=== PATIENT | male | born 1985 | race Caucasian/White ===

== ENCOUNTER 2017-05-07 05:29 | Inpatient (IN) | payer SELFPAY ==
[2017-05-07] MEDS ORDERED: HYDROmorphone INJ* 2 MG/ML CARPUJECT SYRINGE IV SLOW PU ONE (06:00)
[2017-05-07] MEDS ORDERED: NS 0.9% 1000 ML* 2,000 ML IV ONE (06:00)
[2017-05-07] MEDS ORDERED: Famotidine IV* 10 MG/ML 2 ML (20 mg) IV ONE (06:00)
[2017-05-07] MEDS ORDERED: Metoclopramide IV* 5 MG/ML 2 ML VIAL IV ONE (06:00)
[2017-05-07] MEDS ORDERED: Insulin REGULAR(*) 1 UNITS UNIT IV PUSH ONE (06:02)
[2017-05-07 06:21] LABS: ABS Basophils 0 10^3/ul (0-0.2); ABS Eosinophils 0 10^3/ul (0-0.6); ABS Lymphocytes 1.3 10^3/ul (1.0-4.8); ABS Monocytes 0.3 10^3/ul (0-0.8); ABS Neutrophils 10.7 10^3/ul (1.5-7.7); ABS Nucleated RBC 0 10^3/ul; Eosinophil % 0.1 % (0-6); Hematocrit 45 % (42-52); Hemoglobin 15.2 g/dl (14.0-18.0); Lymphocyte % 10.3 % (25-47); Mean Corpuscular HGB Conc 34 g/dl (31-36); Mean Corpuscular Hemoglobin 30 pg (27-31); Mean Corpuscular Volume 87 fL (80-94); Mean Platelet Volume 9 um3 (7.4-10.4); Nucleated Red Blood Cells % 0; Platelet Count 292 10^3/ul (150-450); Red Blood Count 5.15 10^6/ul (4.0-5.4); Red Cell Distribution Width 13 % (10.5-15); White Blood Count 12.3 10^3/ul (3.5-10.8)
[2017-05-07 06:32] LABS: EGFR Non-African American 114.4 (>60)
[2017-05-07] MEDS ORDERED: Insulin GLARGINE(*) 1 UNITS UNIT SUBCUT ONE ×2 (06:59→08:15)
[2017-05-07] MEDS ORDERED: Insulin REGULAR(*) 100 UNITS in NS 0.9% 100 ML* 100 ML IVPB SCH (07:00)
[2017-05-07] MEDS ORDERED: D5NS 0.9% 1000 ML BAG* 1,000 ML IV SCH (07:00)
--- NOTE | 2017-05-07 07:03 | ED ---
Melisa Stafford Edward, scribed for Peace Thrasher MD on 05/07/17 at 0543 . Abdominal Pain/Male - HPI Summary HPI Summary: 31 y/o male presents to the ED c/o severe ABD pain for the past 6 hours. Associated sx: vomiting. Symptoms not aggravated or alleviated by anything. Pt states he first vomited immediately after he ate last night. The pain came after the vomiting. PMHx 2 years DM. Pt takes Hemalog and Lantis. Pt states he has not been taking his full DM medications recently because he is uninsured. Pt has had 1 episode of DKA before. - History of Current Complaint Chief Complaint: EDAbdPain Stated Complaint: POSS DKA Time Seen by Provider: 05/07/17 05:42 Hx Obtained From: Patient Onset/Duration: Lasting Hours, Still Present Timing: Constant Pain Intensity: 10 Pain Scale Used: 0-10 Numeric Location: Epigastric Aggravating Factor(s): Nothing Alleviating Factor(s): Nothing Associated Signs And Symptoms: Positive: Vomiting - Allergies/Home Medications Allergies/Adverse Reactions: Allergies Allergy/AdvReac Type Severity Reaction Status Date / Time Amoxicillin Allergy Unknown Verified 10/18/13 23:21 Reaction Details PMH/Surg Hx/FS Hx/Imm Hx Previously Healthy: No Endocrine/Hematology History: Reports: Hx Diabetes Respiratory History: Reports: Hx Asthma, Other Respiratory Problems/Disorders - bronchitis, not chronic Infectious Disease History: No Infectious Disease History: Denies: Traveled Outside the [place] in Last 30 Days - Family History Known Family History: Positive: Other - Mom - CVA 2x in 50's - Social History Alcohol Use: None Hx Substance Use: Yes Substance Use Type: Reports: Excessive Caffeine, Marijuana Hx Tobacco Use: No Smoking Status (MU): Never Smoked Tobacco Review of Systems Constitutional: Negative Eyes: Negative ENT: Negative Cardiovascular: Negative Respiratory: Negative Positive: Abdominal Pain, Vomiting Genitourinary: Negative Musculoskeletal: Negative Skin: Negative Neurological: Negative Psychological: Normal All Other Systems Reviewed And Are Negative: Yes Physical Exam - Summary Physical Exam Summary: VITAL SIGNS: Reviewed. GENERAL: Patient is a well-developed and nourished male who is lying comfortable in the stretcher. Patient is not in any acute respiratory distress. HEAD AND FACE: No signs of trauma. No ecchymosis, hematomas or skull depressions. No sinus tenderness. EYES: PERRLA, EOMI x 2, No injected conjunctiva, no nystagmus. EARS: Hearing grossly intact. Ear canals and tympanic membranes are within normal limits. MOUTH: Oropharynx within normal limits. NECK: Supple, trachea is midline, no adenopathy, no JVD, no carotid bruit, no c- spine tenderness, neck with full ROM. CHEST: Symmetric, no tenderness at palpation LUNGS: Clear to auscultation bilaterally. No wheezing or crackles. CVS: Regular rate and rhythm, S1 and S2 present, no murmurs or gallops appreciated. ABDOMEN: Soft, epigastric tenderness. No signs of distention. No rebound no guarding, and no masses palpated. Bowel sounds are normal. EXTREMITIES: FROM in all major joints, no edema, no cyanosis or clubbing. NEURO: Alert and oriented x 3. No acute neurological deficits. Speech is normal and follows commands. SKIN: Dry and warm Triage Information Reviewed: Yes Vital Signs On Initial Exam: Initial Vitals Temp Pulse Resp BP Pulse Ox 97.9 F 68 30 141/72 100 05/07/17 05:32 05/07/17 05:32 05/07/17 05:32 05/07/17 05:32 05/07/17 05:32 Vital Signs Reviewed: Yes Diagnostics - Vital Signs Vital Signs Temp Pulse Resp BP Pulse Ox 05/07/17 05:32 97.9 F 68 30 141/72 100 - Laboratory Result Diagrams: 05/07/17 06:08 05/07/17 06:08 Lab Statement: Any lab studies that have been ordered have been reviewed, and results considered in the medical decision making process. Re-Evaluation - Re-Evaluation 1 Re-Evaluation Time: 06:54 Comment: Discuss plan to admit Abdominal Pain Fem Course/Dx - Course Assessment/Plan: 31 y/o male presents to the ED c/o severe ABD pain for the past 6 hours. Associated sx: vomiting. Symptoms not aggravated or alleviated by anything. Pt states he first vomited immediately after he ate last night. The pain came after the vomiting. PMHx 2 years DM. Pt takes Hemalog and Lantis. Pt states he has not been taking his full DM medications recently because he is uninsured. Pt has had 1 episode of DKA before. Spoke to Dr. Mendoza (hospitalist) at 06:56, who accepted the pt for admission. - Diagnoses Provider Diagnoses: Hyperglycemia - Provider Notifications Discussed Care Of Patient With: Dee Dee Mendoza Time Discussed With Above Provider: 06:56 Instructed by Provider To: Admit As Inpatient Discharge - Discharge Plan Condition: Stable Disposition: ADMITTED TO [facility] Referrals: Kanu Saab MD [Primary Care Provider] - The documentation as recorded by the Melisa sevilla Edward accurately reflects the service I personally performed and the decisions made by , Peace Thrasher MD.
[2017-05-07] MEDS ORDERED: NS 0.9% 1000 ML* 1,000 ML IV ONE (07:34)
[2017-05-07] MEDS ORDERED: NS 0.9% 1000 ML* 1,000 ML IV SCH (07:45)
--- NOTE | 2017-05-07 07:59 | RAD ---
Indication: Chest pain, shortness of breath. Stomach pain. Comparison: October 19, 2013 Technique: Upright AP 0700 hours Report: Clear lungs and pleural spaces. Negative for pneumothorax. The heart, pulmonary vasculature, and mediastinal contours are unremarkable. Negative for free air beneath the diaphragm. Unremarkable osseous structures and soft tissue contours. IMPRESSION: No evidence for acute intrathoracic disease.
[2017-05-07] MEDS ORDERED: Acetaminophen TAB* 325 MG PO PRN (08:14)
[2017-05-07] MEDS ORDERED: Dextrose 50% Syringe 50 ML* 25 GM/50 ML SYRINGE IV PUSH PRN (08:15)
[2017-05-07 08:21] LABS: EGFR Non-African American 129.4 (>60)
[2017-05-07] MEDS ORDERED: Magnesium Sulfate 2 GM IV* 2 GM/50 ML BAG IVPB ONE (08:22)
[2017-05-07] MEDS: Insulin LISPRO* 1 UNITS UNIT SUBCUT SCH ×4 (08:54→23:10)
[2017-05-07] MEDS ORDERED: Ondansetron INJ* 2 MG/ML VIAL ONE (09:24)
[2017-05-07] MEDS: Ondansetron INJ* 2 MG/ML VIAL IV PRN ×2 (09:26→20:39)
[2017-05-07 10:06] LABS: Urine Appearance Clear; Urine Blood Negative (Negative); Urine Color Yellow; Urine Ketones 2+ (Negative); Urine Protein Negative (Negative); Urine Specific Gravity 1.029 (1.010-1.030); Urine Urobilinogen Negative (Negative)
[2017-05-07] MEDS: NS 0.9% 1000 ML* 1,000 ML IV SCH ×2 (10:45→20:39)
[2017-05-07] MEDS: Pantoprazole IV* 40 MG IV SCH (11:01)
[2017-05-07] MEDS: Metoclopramide IV* 5 MG/ML 2 ML VIAL IV PRN (11:01)
--- NOTE | 2017-05-07 19:25 | HP ---
CC: Dr. Saab * HISTORY AND PHYSICAL: DATE OF ADMISSION: 05/07/17 PRIMARY CARE PROVIDER: Dr. Saab. CHIEF COMPLAINT: Nausea and vomiting. HISTORY OF PRESENT ILLNESS: Godwin Leiva is a 31-year-old male with a history of diabetes type 1 who had been using lispro and Lantus insulin, but he decided not to use Lantus for approximately the past 3 weeks due to financial issues. He stated that the insulin Lantus supply for a month cost him 450 dollars. He does not have insurance. He had been supplementing himself with insulin Humalog and taking double the amount. Nevertheless yesterday, he started having nausea and vomiting and vomited several times, complained also of epigastric pain. Although, his symptoms resolved after he had received antiemetics in the emergency department. He was noted to have hyperglycemia in the emergency department with increase in anion gap, but on his ABG, his pH was normal. He is going to be placed on overnight observation with the diagnosis of dehydration and uncontrolled diabetes. PAST MEDICAL HISTORY: 1. Diabetes type 1, diagnosed in 2013. 2. History of right index finger fracture with splint. CURRENT MEDICATIONS: Include, 1. Insulin Humalog up to 60 units a day in 3 divided doses. 2. The patient used to be on Lantus at 40 units daily that he discontinued 3 weeks ago. ALLERGIES: AMOXICILLIN. FAMILY HISTORY: Positive for mother with history of CVA and diabetes. SOCIAL HISTORY: The patient has a history of 1 pack per day smoking and has been doing so for over 10 years. He drinks an occasional beer. 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 His surrogate is his father, Vaibhav Leiva. REVIEW OF SYSTEMS: Please see history of present illness. The patient stated that for the past 2 years, his weight had been fluctuating but more recently, he lost approximately 30 to 40 pounds. Most of that was intentional weight loss. Currently he denies any nausea, vomiting, or epigastric pain that happened overnight. He denies any diarrhea. All the remaining 12 systems were reviewed with the patient and were otherwise negative. PHYSICAL EXAMINATION GENERAL: This is a very pleasant 31-year-old male who is in no acute distress. Alert, awake, and oriented x3. VITAL SIGNS: Blood pressure 123/64, heart rate of 57 and regular, respiratory rate 20, oxygen saturation 96% on room air, temperature 97.9. HEENT: Head is atraumatic, normocephalic. Eyes: Pupils are equal and reactive to light and accommodation. Oropharynx clear. Mucosa moist. NECK: Supple. No JVD. No bruits bilaterally. RESPIRATORY: Clear to auscultation bilaterally. CARDIOVASCULAR: Regular rate and rhythm. No murmur. ABDOMEN: Soft. Minimally tender in the epigastric region with no rebound, no guarding. Bowel sounds are present in all 4 quadrants. EXTREMITIES: There is no edema. Pulses +2 bilaterally. No clubbing or cyanosis. NEUROLOGIC: Speech clear. Cranial nerves II through XII grossly intact. Motor strength is 5/5 bilaterally. SKIN: On evaluation of the skin, no ecchymotic areas or rashes noted. LABORATORY DATA: VBG with pH of 7.39, pCO2 of 25, pO2 of 30, bicarb of 17.8. CBC: White blood cell count of 12.3, hemoglobin of 15.2, hematocrit of 45, and platelets of 292. Sodium was 128, potassium 4.3, chloride 94, carbon dioxide 15, anion gap of 19, BUN 17, creatinine 0.79. An hour later, his basic metabolic panel shows sodium of 129, potassium 4.4, chloride 97, carbon dioxide 20, anion gap of 12, BUN 16, creatinine 0.71. Currently his glucose level is 247. Liver function tests were unremarkable except for bilirubin of 2.4. Lipase was below 10. Magnesium was 1.7. Portable chest x-ray was unremarkable. Urinalysis is pending at the time of dictation. ASSESSMENT AND PLAN: 1. Nausea and vomiting, likely due to uncontrolled diabetes with subsequent dehydration. Although the patient does appear to have an anion gap and low carbon dioxide, his venous blood gas does not indicate acidosis. At this point , the patient is going to be place on observation with continuous intravenous hydration. 2. In regards to patient's diabetes, the patient stated that he cannot afford insulin Lantus that cost 450 dollars a month, but he spends over 300 dollars a month for cigarettes. We discussed the importance of his insulin and harmful effects of tobacco smoking. I also asked social problems specialist to see the patient in consultation. The patient is going to receive 20 units of insulin Lantus now and continue on insulin sliding scale. He is going to be place on diabetic diet. 3. The patient's code status is full. His surrogate is his father. 4. For DVT prophylaxis, the patient is at low risk and ambulation is going to be encouraged. 5. The patient's bilirubin elevation is likely due to dehydration. 6. Hypomagnesemia is going to be replaced with IV magnesium. TIME SPENT: Approximately 65 minutes was spent on history and physical taking of this patient. [id number]/[facility] #: [id number] KAYLEE
[2017-05-08] MEDS: Ondansetron INJ* 2 MG/ML VIAL IV PRN ×4 (02:06→22:20)
[2017-05-08] MEDS: Morphine INJ* 2 MG/ML 1 ML SYRINGE (TWO MG - NEW SYRINGE VERSION) IV PRN ×4 (02:45→22:19)
[2017-05-08] MEDS: Metoclopramide IV* 5 MG/ML 2 ML VIAL IV PRN ×3 (03:21→19:42)
[2017-05-08] MEDS: NS 0.9% 1000 ML* 1,000 ML IV SCH ×3 (05:55→22:03)
[2017-05-08] MEDS ORDERED: Insulin GLARGINE(*) 1 UNITS UNIT SUBCUT SCH (09:00)
[2017-05-08] MEDS: Pantoprazole IV* 40 MG IV SCH (09:45)
[2017-05-08] MEDS: Insulin LISPRO* 1 UNITS UNIT SUBCUT SCH ×4 (09:46→22:20)
[2017-05-08] MEDS ORDERED: Insulin GLARGINE(*) 1 UNITS UNIT SUBCUT ONE (12:08)
--- NOTE | 2017-05-08 12:11 | PN ---
Subjective Date of Service: 05/08/17 Interval History: Pt had a toast for breakfast and continued to have problems with nausea. Last BM 3 days ago. Denies abd pain , but c/o epigastric discomfort due to nausea Objective Active Medications: Acetaminophen (Tylenol Tab*) 650 mg PO Q4H PRN PRN Reason: FEVER/PAIN Last Admin: 05/07/17 11:01 Dose: 650 mg Dextrose (D50w Syringe 50 Ml*) 12.5 gm IV PUSH .FOR FS < 60 - SS PRN PRN Reason: FS < 60 Sodium Chloride (Ns 0.9% 1000 Ml*) 1,000 mls @ 125 mls/hr IV PER RATE [facility] Last Admin: 05/08/17 05:55 Dose: 125 mls/hr Insulin Glargine (Lantus(*)) 30 units SUBCUT Q24H [facility] Last Admin: 05/08/17 09:46 Dose: 30 units Insulin Human Lispro (Humalog*) 0 units SUBCUT ACHS [facility] PRN Reason: Protocol Last Admin: 05/08/17 09:46 Dose: 6 units Metoclopramide HCl (Reglan Iv*) 10 mg IV Q6H PRN PRN Reason: NAUSEA/VOMITING Last Admin: 05/08/17 11:42 Dose: 10 mg Metoclopramide HCl (Reglan Tab*) 10 mg PO [facility] Morphine Sulfate (Morphine Inj (Syringe)*) 1 mg IV Q4H PRN PRN Reason: PAIN Last Admin: 05/08/17 07:32 Dose: 1 mg Ondansetron HCl (Zofran Inj*) 4 mg IV Q4H PRN PRN Reason: NAUSEA/VOMITING Last Admin: 05/08/17 07:32 Dose: 4 mg Pantoprazole Sodium (Protonix Iv*) 40 mg IV Q24H [facility] Last Admin: 05/08/17 09:45 Dose: 40 mg Vital Signs - 8 hr 05/08/17 05/08/17 05/08/17 05:34 07:32 10:06 Respiratory 20 20 16 Rate Oxygen Devices in Use Now: None Appearance: 31 yo m in nAD, aAOx3 Eyes: No Scleral Icterus, PERRLA Ears/Nose/Mouth/Throat: NL Teeth, Lips, Gums, Mucous Membranes Moist Neck: NL Appearance and Movements; NL JVP, Trachea Midline Respiratory: Symmetrical Chest Expansion and Respiratory Effort, Clear to Auscultation Cardiovascular: NL Sounds; No Murmurs; No JVD, RRR Abdominal: - - mild epigastric tenderness no rebound, no guarding, BS+ Lymphatic: No Cervical Adenopathy Extremities: No Edema, No Clubbing, Cyanosis Skin: No Rash or Ulcers, No Nodules or Sclerosis Neurological: Alert and Oriented x 3, NL Muscle Strength and Tone Result Diagrams: 05/07/17 06:08 05/07/17 07:55 Assess/Plan/Problems-Billing Assessment: 31 yo M with DM1 who stopped using Lantus due to financial problems presented with N/V and BG 300 - Patient Problems (1) Uncontrolled diabetes mellitus Comment: In better conteol today. Back to 40 U of Lantus /day. Appreciate YSEIKA arce who aranged for pt to be able to buy Lantus at 180 USD/month (2) Nausea & vomiting Comment: ? gastroparesis vs acute gastroenteritis will start scheduled Reglan (3) DVT prophylaxis Comment: low risk Status and Disposition: OBV, possible d/c later today if tolerates PO
[2017-05-08] MEDS: Metoclopramide TAB* 10 MG PO SCH (15:49)
[2017-05-09] MEDS: Metoclopramide IV* 5 MG/ML 2 ML VIAL IV PRN ×2 (03:14→17:48)
[2017-05-09] MEDS: Morphine INJ* 2 MG/ML 1 ML SYRINGE (TWO MG - NEW SYRINGE VERSION) IV PRN (03:17)
[2017-05-09] MEDS: NS 0.9% 1000 ML* 1,000 ML IV SCH ×2 (06:20→17:11)
[2017-05-09] MEDS ORDERED: Morphine INJ* 4 MG/ML 1 ML CARPUJECT IV PRN (07:00)
[2017-05-09] MEDS ORDERED: Insulin GLARGINE(*) 1 UNITS UNIT SUBCUT SCH (08:11)
--- NOTE | 2017-05-09 09:04 | PN ---
Subjective Date of Service: 05/09/17 Interval History: pt still can't keep anything down.C/o mild epigastric pain. Passes flatus, but no BM x 3-4 days. Objective Active Medications: Acetaminophen (Tylenol Tab*) 650 mg PO Q4H PRN PRN Reason: FEVER/PAIN Last Admin: 05/07/17 11:01 Dose: 650 mg Dextrose (D50w Syringe 50 Ml*) 12.5 gm IV PUSH .FOR FS < 60 - SS PRN PRN Reason: FS < 60 Sodium Chloride (Ns 0.9% 1000 Ml*) 1,000 mls @ 125 mls/hr IV PER RATE [facility] Last Admin: 05/09/17 06:20 Dose: 125 mls/hr Insulin Glargine (Lantus(*)) 40 units SUBCUT Q24H [facility] Insulin Human Lispro (Humalog*) 0 units SUBCUT ACHS [facility] PRN Reason: Protocol Last Admin: 05/08/17 22:20 Dose: 1 units Metoclopramide HCl (Reglan Iv*) 10 mg IV Q6H PRN PRN Reason: NAUSEA/VOMITING Last Admin: 05/09/17 03:14 Dose: 10 mg Metoclopramide HCl (Reglan Tab*) 10 mg PO AC [facility] Last Admin: 05/08/17 15:49 Dose: 10 mg Morphine Sulfate (Morphine Inj (Syringe)*) 1 mg IV Q4H PRN PRN Reason: PAIN Ondansetron HCl (Zofran Inj*) 4 mg IV Q4H PRN PRN Reason: NAUSEA/VOMITING Last Admin: 05/08/17 22:20 Dose: 4 mg Pantoprazole Sodium (Protonix Iv*) 40 mg IV Q24H [facility] Last Admin: 05/08/17 09:45 Dose: 40 mg Vital Signs - 8 hr 05/09/17 05/09/17 05/09/17 03:17 03:41 04:59 Temperature 98.8 F Pulse Rate 55 Respiratory 18 20 16 Rate Blood Pressure 149/69 (mmHg) O2 Sat by Pulse 100 Oximetry Oxygen Devices in Use Now: None Appearance: 31 yo m in nAD, AAOx3 Eyes: No Scleral Icterus, PERRLA Ears/Nose/Mouth/Throat: NL Teeth, Lips, Gums, Mucous Membranes Moist Neck: NL Appearance and Movements; NL JVP, Trachea Midline Respiratory: Symmetrical Chest Expansion and Respiratory Effort, Clear to Auscultation Cardiovascular: NL Sounds; No Murmurs; No JVD, RRR Abdominal: No Hepatosplenomegaly, - - mild epigastric tenderness, no rebound, no guarding, BS+ Lymphatic: No Cervical Adenopathy Extremities: No Edema, No Clubbing, Cyanosis Skin: No Rash or Ulcers, No Nodules or Sclerosis Neurological: Alert and Oriented x 3, NL Muscle Strength and Tone Result Diagrams: 05/07/17 06:08 05/07/17 07:55 Assess/Plan/Problems-Billing Assessment: 31 yo M with DM1 who stopped using Lantus due to financial problems presented with N/V and BG 300 - Patient Problems (1) Uncontrolled diabetes mellitus Comment: Controlled today. Back to 40 U of Lantus /day. Appreciate YESIKA arce who aranged for pt to be able to buy Lantus at 180 USD/month (2) Nausea & vomiting Comment: suspect acute gastroenteritis that could have caused ileus CT abd ordered. cont clears. (3) DVT prophylaxis Comment: low risk Status and Disposition: OBV
[2017-05-09] MEDS: Metoclopramide TAB* 10 MG PO SCH ×3 (09:30→17:11)
[2017-05-09] MEDS: Pantoprazole IV* 40 MG IV SCH (09:30)
[2017-05-09] MEDS: Insulin LISPRO* 1 UNITS UNIT SUBCUT SCH ×4 (10:01→21:07)
[2017-05-09] MEDS: Ondansetron INJ* 2 MG/ML VIAL IV PRN ×3 (10:01→20:53)
[2017-05-09] MEDS ORDERED: Iodixanol* (CONTRAST) 320 MG/ML 100 ML SDV IV ONE (11:06)
[2017-05-09] MEDS ORDERED: Morphine INJ* 2 MG/ML 1 ML CARPUJECT IV PRN (12:37)
--- NOTE | 2017-05-09 12:48 | RAD ---
CLINICAL HISTORY: Epigastric pain, nausea vomiting, rule out obstruction COMPARISON: None TECHNIQUE: Multiple contiguous axial CT scans were obtained of the abdomen and pelvis after the administration of intravenous contrast. Coronal and sagittal multiplanar reformations are submitted for review. Oral contrast was administered. Delayed images were obtained through the abdomen and pelvis. FINDINGS: LUNG BASES: The lung bases are clear. LIVER: The liver is diffusely low in attenuation compared to the spleen. There are no focal hepatic parenchymal masses. BILE DUCTS: There is no intrahepatic or extrahepatic biliary dilatation. GALLBLADDER: The gallbladder is normal, without pericholecystic inflammatory change. PANCREAS: The pancreas is normal, without mass or ductal dilatation. SPLEEN: Normal in size and appearance. UPPER GI TRACT: Evaluation of the gastrointestinal tract is limited by incomplete gastric distention. The upper GI tract is unremarkable. SMALL BOWEL AND MESENTERY: The small bowel is normal in contour, course, and caliber. There is no obstruction or dilatation. COLON: The colon is normal in contour, course, caliber. There is no pericolonic inflammatory change. ADRENALS: Normal bilaterally. KIDNEYS: The kidneys are normal in shape, size, contour, and axis. There is no hydronephrosis or nephrolithiasis. BLADDER: The bladder is smooth in contour. PELVIC ORGANS: The prostate gland is normal. The seminal vesicles are symmetric. AORTA: The aorta is normal. IVC: Unremarkable LYMPH NODES: There is no lymphadenopathy by size criteria. ABDOMINAL WALL: There is no evidence for abdominal wall hernia. BONES AND SOFT TISSUES: Unremarkable OTHER: There is a small amount of simple fluid within the pelvis. IMPRESSION: 1. NO OBSTRUCTION. 2. SMALL AMOUNT OF PELVIC ASCITES. 3. FATTY INFILTRATION OF THE LIVER.
[2017-05-09] MEDS ORDERED: oxyCODONE TAB* 5 MG TAB PO PRN (17:58)
[2017-05-09] MEDS: Morphine INJ* 2 MG/ML 1 ML CARPUJECT IV PRN (20:52)
[2017-05-10] MEDS: Metoclopramide IV* 5 MG/ML 2 ML VIAL IV PRN (00:37)
[2017-05-10] MEDS: NS 0.9% 1000 ML* 1,000 ML IV SCH (01:26)
[2017-05-10] MEDS: Ondansetron INJ* 2 MG/ML VIAL IV PRN (04:54)
[2017-05-10] MEDS: Morphine INJ* 2 MG/ML 1 ML CARPUJECT IV PRN (04:56)
[2017-05-10 07:06] LABS: ABS Basophils 0 10^3/ul (0-0.2); ABS Eosinophils 0 10^3/ul (0-0.6); ABS Monocytes 0.7 10^3/ul (0-0.8); ABS Neutrophils 5.4 10^3/ul (1.5-7.7); ABS Nucleated RBC 0 10^3/ul; Eosinophil % 0.3 % (0-6); Hematocrit 39 % (42-52); Hemoglobin 13.1 g/dl (14.0-18.0); Lymphocyte % 24.6 % (25-47); Mean Corpuscular HGB Conc 34 g/dl (31-36); Mean Corpuscular Hemoglobin 30 pg (27-31); Mean Corpuscular Volume 88 fL (80-94); Mean Platelet Volume 9 um3 (7.4-10.4); Nucleated Red Blood Cells % 0.1; Platelet Count 216 10^3/ul (150-450); Red Blood Count 4.42 10^6/ul (4.0-5.4); Red Cell Distribution Width 14 % (10.5-15); White Blood Count 8.3 10^3/ul (3.5-10.8)
[2017-05-10 07:18] LABS: EGFR Non-African American 140.8 (>60)
[2017-05-10] MEDS: Insulin LISPRO* 1 UNITS UNIT SUBCUT SCH (07:27)
[2017-05-10] MEDS: Metoclopramide TAB* 10 MG PO SCH ×2 (07:35→11:29)
[2017-05-10] MEDS: KCL 10 MEQ/50 ML IVPREMIX* 10 MEQ/50 ML BAG IV SCH ×4 (08:16→14:23)
[2017-05-10] MEDS ORDERED: Insulin GLARGINE(*) 1 UNITS UNIT SUBCUT SCH ×2 (09:00)
[2017-05-10] MEDS ORDERED: Insulin LISPRO* 1 UNITS UNIT SUBCUT SCH (10:00)
[2017-05-10] MEDS: Pantoprazole IV* 40 MG IV SCH (11:34)
[2017-05-10 13:03] VITALS: BP 135/79
[2017-05-10] MEDS ORDERED: KCL 10 MEQ/50 ML IVPREMIX* 10 MEQ/50 ML BAG ONE (14:20)
--- NOTE | 2017-05-11 08:35 | DS ---
CC: Dr. Saab * DISCHARGE SUMMARY: DATE OF ADMISSION: DATE OF DISCHARGE: 05/10/17 DISCHARGE DIAGNOSES: 1. Uncontrolled diabetes due to patient not using prescribed insulin. 2. Intractable nausea and vomiting suspected gastroenteritis. SECONDARY DIAGNOSIS: Diabetes type 1 diagnosed in 2013. MEDICATIONS AT DISCHARGE: Include, 1. Humalog insulin 30 units three times a day as previously taken. 2. Lantus insulin 40 units daily. 3. Zofran ODT 4 mg every four to six hours on as needed basis for nausea and vomiting. LABORATORY DATA: By the time of discharge showed white blood cell count 5.6, hemoglobin 13.1, hematocrit of 39, platelets of 216. Sodium was 135, potassium 3.2, chloride 101, carbon dioxide 24, BUN 4, creatinine 0.66. Patient's abdomen and pelvis CT obtained on 05/09/17 showed impression "no obstruction. Small amount of pelvic ascites, fatty infiltration of the liver." HOSPITALIZATION COURSE: Godwin Leiva is a 31-year-old male with history of diabetes type 1 who presented to the hospital complaining of nausea, vomiting and uncontrolled diabetes. The patient said that his insulin Lantus was too expensive and he decided to stop taking it three weeks prior. When he came into the emergency department, he was noted to have no acidosis on venous blood gas. Nevertheless, his chemistries were significant for hyponatremia likely due to dehydration as well as uncontrolled diabetes with glucose levels in the 300s. The patient was admitted to the hospital, initially placed on observation , treated with intravenous fluids and placed back on his insulin Lantus. Nevertheless by 05/09/17, he still had troubles tolerating p.o. food and continued to have intractable vomiting. Due to that CT scan of the abdomen was obtained, which was unremarkable as above. On the morning of 05/10/17, the patient felt closer to his baseline. By the time of discharge, he ate his regular meal and he tolerated without any problems. At this point, the impression is he likely suffered from gastroenteritis and uncontrolled diabetes. Please note that patient stated that he could not afford his insulin Lantus that it was over 400 dollars prescription for a month. A renal social worker Toña arranged for the patient to have a discount from the [employer] company. The patient's monthly prescription of Lantus was paid for 180 dollars per month. The patient is going to be discharged home. RECOMMENDATIONS: To follow up with his primary care provider as scheduled on at 2:30 p.m. PHYSICAL EXAMINATION: At the time of discharge, blood pressure 135/79, heart rate of 57 and regular, respiratory rate 16, oxygen saturation 100% on room air , temperature of 98.0. General: This is a very pleasant 31-year-old male who is in no acute distress. Alert, awake, and oriented x3. HEENT: Head is atraumatic, normocephalic. Eyes: Pupils are equal and reactive to light and accommodation. Oropharynx clear. Mucosa moist. Neck: Supple. No JVD. No bruits. Cardiovascular: Regular rate and rhythm. No murmur. Respiratory: Clear to auscultation bilaterally. Abdomen: Soft, nontender. Bowel sounds present in all four quadrants. Extremities: There is no edema. Pulses +2 bilaterally. No clubbing or cyanosis. Neurologic: Speech clear. Cranial nerves II through XII grossly intact. Motor strength is 5/5 bilaterally. Please note this is a short summary of the patient's hospitalization. Please refer to further medical records for details. TIME SPENT: Approximately 35 minutes was spent on the patient's discharge. [id number]/[facility] #: [id number] [facility]ENTER[facility]iana
== END 2017-05-10 16:50 | disposition home or self-care (01) | DRG 638 ==
LOC: ED 05:29 → MED 08:13 → OBSVTOIN 05-09 18:16
PROVIDERS: ADMIT Internal Medicine; ATTEND Internal Medicine
DX: E10.65 Type 1 diabetes mellitus with hyperglycemia (principal); K52.9 Noninfective gastroenteritis and colitis, unspecified; E87.1 Hypo-osmolality and hyponatremia; E83.42 Hypomagnesemia; R18.8 Other ascites; K76.0 Fatty (change of) liver, not elsewhere classified; E86.0 Dehydration; E86.1 Hypovolemia; F17.210 Nicotine dependence, cigarettes, uncomplicated; J45.909 Unspecified asthma, uncomplicated; F12.90 Cannabis use, unspecified, uncomplicated; Z88.1 Allergy status to other antibiotic agents; Z72.89 Other problems related to lifestyle; Z82.3 Family history of stroke; Z83.3 Family history of diabetes mellitus; Z79.4 Long term (current) use of insulin
CPT/HCPCS: 36415; 71045; 74177; 80048; 80053; 81003; 82150; 82803; 83605; 83690; 83735; 85025; 86140; 87040; 96374; 96375; 99284; A9270-GY; G0378; J1170; J1815; J2270; J2405; J2765; J3475; J3480; Q9967

== ENCOUNTER 2017-07-09 09:31 | Inpatient (IN) | payer SELFPAY ==
[2017-07-09 10:20] LABS: ABS Basophils 0.1 10^3/ul (0-0.2); ABS Eosinophils 0 10^3/ul (0-0.6); ABS Lymphocytes 0.6 10^3/ul (1.0-4.8); ABS Monocytes 1.7 10^3/ul (0-0.8); ABS Neutrophils 20.2 10^3/ul (1.5-7.7); ABS Nucleated RBC 0 10^3/ul; Eosinophil % 0 % (0-6); Hematocrit 54 % (42-52); Hemoglobin 16.8 g/dl (14.0-18.0); Lymphocyte % 2.8 % (25-47); Mean Corpuscular HGB Conc 31 g/dl (31-36); Mean Corpuscular Hemoglobin 29 pg (27-31); Mean Corpuscular Volume 94 fL (80-94); Mean Platelet Volume 8.7 um3 (7.4-10.4); Nucleated Red Blood Cells % 0; Platelet Count 385 10^3/ul (150-450); Red Blood Count 5.74 10^6/ul (4.0-5.4); Red Cell Distribution Width 14 % (10.5-15); White Blood Count 22.6 10^3/ul (3.5-10.8)
[2017-07-09 10:36] LABS: Urine Appearance Clear; Urine Blood 2+ (Negative); Urine Color Straw; Urine Ketones 2+ (Negative); Urine Protein Negative (Negative); Urine Specific Gravity 1.017 (1.010-1.030); Urine Urobilinogen Negative (Negative)
[2017-07-09 10:40] LABS: EGFR Non-African American 40.3 (>60)
[2017-07-09] MEDS ORDERED: Insulin REGULAR IVPB 100 UNITS/100 ML UNIT IVPB ONE (10:59)
[2017-07-09] MEDS ORDERED: Insulin REGULAR(*) 1 UNITS UNIT IV PUSH ONE ×2 (11:07→22:10)
[2017-07-09] MEDS: NS 0.9% 1000 ML* 3,000 ML IV ONE ×2 (11:48→11:49)
[2017-07-09] MEDS ORDERED: Acetaminophen TAB* 325 MG PO PRN (12:08)
[2017-07-09] MEDS: Ondansetron INJ* 2 MG/ML VIAL IV PRN ×2 (12:50→18:55)
--- NOTE | 2017-07-09 15:25 | HP ---
CC: Dr. Saab * HISTORY AND PHYSICAL: DATE OF ADMISSION: 07/09/17 PRIMARY CARE PROVIDER: Dr. Saab. CHIEF COMPLAINT: Nausea, vomiting, abdominal pain. HISTORY OF PRESENT ILLNESS: Mr. Leiva is a 31-year-old male who has a history of type 1 diabetes diagnosed in 2013 who states that he had been feeling well up until Saturday evening. He states that Saturday he did not eat really anything all day; however, he and his girlfriend went out to dinner where he ate chicken parmesan and a salad and immediately began to have severe abdominal pain. The patient then began to have very frequent vomiting. The patient continues to have abdominal pain, but states that it is associated with vomiting at this point. He has not really been eating or drinking much over the last couple of days. He has been trying to keep in water; however, even that is coming back up. The patient states despite not eating or drinking, he has been taking his Lantus. He states he is taking 40 units daily as well as lispro 30 units once a day. He states he checked his blood sugar on the morning of admission and it was in the 300 range at home. He ultimately presented to the ER due to the persistent nausea, vomiting, and abdominal pain. PAST MEDICAL HISTORY: Type 1 diabetes. PAST SURGICAL HISTORY: None. MEDICATIONS: 1. Lantus 40 units subcutaneous daily. 2. Lispro 30 units subcutaneous t.i.d. 6. B complex 1 tab p.o. daily. ALLERGIES: AMOXICILLIN. FAMILY HISTORY: Mom has a history of CVA and diabetes. SOCIAL HISTORY: The patient smokes 1 pack per day and has been doing so for over 10 years. He drinks beer on occasion. He indicates that his father, Chip Leiva, is his healthcare proxy. REVIEW OF SYSTEMS: A complete 11-system review of systems is obtained. Pertinent positives and negatives are as per HPI and otherwise negative. PHYSICAL EXAMINATION GENERAL: The patient is a well-developed young male, who is lying in stretcher , breathing heavily, in no acute distress. VITAL SIGNS: Blood pressure 164/70, pulse 138, respirations 25, temp 97.9, O2 sat 100% on room air. HEENT: Pupils are equal and round. Extraocular muscles are intact. Oropharynx is clear. Oral mucosa is slightly dry. There is no submandibular, cervical, or supraclavicular adenopathy. Thyroid is not enlarged. No thyroid nodules noted. PULMONARY: Lungs are clear to auscultation bilaterally. CARDIAC: Normal S1, S2. Heart rate is tachycardic but regular. There is no lower extremity edema. There are no murmurs. ABDOMEN: Bowel sounds present. Abdomen is soft, nondistended. He is tender in the right upper quadrant to deep palpation. MUSCULOSKELETAL: There is no cyanosis or clubbing of the digits. There is full active range of motion of all 4 extremities. NEURO: Cranial nerves II through XII are grossly intact. Sensation and strength exam are normal. PSYCH: The patient is alert. He is oriented x3. Affect appears appropriate. SKIN: Warm and dry. There are no rashes. LABORATORY DATA: WBC 22.6, hemoglobin 16.8, hematocrit 54, platelets 385,000. Sodium 110, potassium 5.2, chloride 68, CO2 less than 7, anion gap not reportable, BUN 50, creatinine 1.95, glucose 874. Lactic acid 3.7. Calcium 10.0. Bilirubin 2.6, AST 18, ALT 33, alk phos 112. CRP 1.91. Albumin 5.0. Lipase 15. Urinalysis reveals a specific gravity of 1.017, 2+ ketones, 2+ blood , and 3+ glucose. VBG 7.06/02/54. ASSESSMENT AND PLAN: Mr. Leiva is a 31-year-old male with a history of type 1 diabetes who was admitted to [facility] in April 2017 for diabetic ketoacidosis, who presents back to the emergency room today with complaints of intractable nausea , vomiting, and abdominal pain, and is found to be in severe diabetic ketoacidosis. 1. Severe diabetic ketoacidosis. The patient claims that he has been using his insulin as prescribed. I question the truthfulness of this, especially as he states that his blood sugar was 300 around 7:00 in the morning; however, at 10 o'clock in the morning, his blood sugar was 874. The patient at this point will be admitted to the intensive care unit and started on insulin drip at 0.1 units/kg/hour. The patient will need fingersticks every 1 hour with aggressive adjustments in the insulin drip. Additionally, the patient will have electrolytes obtained every 4 hours. The patient will remain on the insulin drip until his anion gap normalizes and his serum CO2 level normalizes. The patient has received 9 units regular insulin bolus x1. The patient is likely severely volume deplete. He has received 3 L of normal saline in the emergency room. He will be transitioned to lactated Ringer's at 200 mL per hour. Hemoglobin A1c has been ordered and the results of this are pending. 2. Acute renal failure. The patient's baseline creatinine is in the 0.6 to 0.7 range. His creatinine today on admission is 1.95 or greater than 3 times his baseline. I suspect this is all prerenal in nature from severe dehydration related to his diabetic ketoacidosis. 3. Hyponatremia. The patient is markedly hyponatremic; however, correcting the sodium based on his markedly elevated glucose puts him with a sodium of approximately 122. Again, I suspect that the hyponatremia and hypochloremia is secondary to dehydration. The patient received 3 L of normal saline in the emergency room and will continue on LR at 200 mL per hour moving forward. These will be followed very closely every 4 hours to ensure that they are correcting. 4. Lactic acidosis. I suspect this is again secondary to dehydration and likely his diabetic ketoacidosis. We will follow this every 4 hours until it normalizes. I do not believe that the patient is infected as he gives no history of infectious symptoms leading up to this past Saturday. 5. Leukocytosis. I suspect this is a stress reaction. Again, he has no overt signs of infection. We will monitor for any signs of infection, however. 6. Hyperbilirubinemia. My guess is this is related to vomiting. His bilirubin level was elevated at last hospitalization as well. However, given the pain that he is having in the right upper quadrant, I will go ahead and order a right upper quadrant ultrasound to rule out gallbladder disease, especially given the fact that the pain began after eating chicken parmesan. 7. DVT prophylaxis. According to the Adult Thrombosis Prophylaxis Risk Factor Assessment Guide, the patient has a total risk factor score of 1, making him low risk. Ambulation will be utilized as DVT prophylaxis. 8. Code status is full. TIME SPENT: 65 minutes were spent admitting this patient. [id number]/[facility] #: [id number] KAYLEE
--- NOTE | 2017-07-09 15:57 | RAD ---
INDICATION: Cholecystitis COMPARISON: None TECHNIQUE: Longitudinal and transverse scans of the right upper quadrant were obtained. Doppler interrogation of the hepatic and portal venous system was performed. FINDINGS: Liver: The liver is normal in mildly enlarged. The echogenicity is normal. There are no focal masses. The liver measures 19 cm in cephalocaudal dimension. Vessels: There is normal hepatic and portal venous flow. Bile ducts: There is no evidence of intrahepatic or extrahepatic ductal dilatation. The common duct measures 0.2 cm. Gallbladder: The sonographic appearance of the gallbladder is normal. There is no evidence of cholelithiasis, thickening of the gallbladder wall, or pericholecystic fluid. Pancreas: The visualized pancreas appears normal Right kidney: The right kidney is normal in size and echogenicity. There are no masses or calculi. There is no evidence of hydronephrosis. The right kidney measures 13.7 x 4.4 x 6.1 cm. IVC and aorta: The aorta and superior vena cava appear normal. Fluid: There is no ascites. Other: None. IMPRESSION: NORMAL GALLBLADDER. MILDLY ENLARGED LIVER
[2017-07-09] MEDS ORDERED: D5NS 0.9% 1000 ML BAG* 1,000 ML IV SCH (16:00)
[2017-07-09] MEDS: PROCHLORPERAZINE INJ 5 MG/ML 2 ML VIAL IV PRN (16:29)
[2017-07-09] MEDS ORDERED: Dextrose 50% Syringe 50 ML* 25 GM/50 ML SYRINGE IV PUSH PRN (17:11)
[2017-07-09] MEDS ORDERED: Dextrose 50% Syringe 50 ML* 25 GM/50 ML SYRINGE ONE (17:14)
[2017-07-09] MEDS: D5NS 0.9% 1000 ML BAG* 1,000 ML IV SCH (22:55)
[2017-07-10] MEDS: Pantoprazole IV* 40 MG IV SCH ×2 (00:25→09:15)
[2017-07-10] MEDS ORDERED: Insulin REGULAR IVPB 100 UNITS/100 ML UNIT IVPB SCH (00:30)
[2017-07-10 02:51] LABS: EGFR Non-African American 78.1 (>60)
[2017-07-10] MEDS: D5NS 0.9% 1000 ML BAG* 1,000 ML IV SCH ×2 (05:23→12:03)
[2017-07-10 06:55] LABS: Hematocrit 47 % (42-52); Hemoglobin 15.9 g/dl (14.0-18.0); Mean Corpuscular HGB Conc 34 g/dl (31-36); Mean Corpuscular Hemoglobin 30 pg (27-31); Mean Corpuscular Volume 88 fL (80-94); Mean Platelet Volume 8.3 um3 (7.4-10.4); Platelet Count 305 10^3/ul (150-450); Red Blood Count 5.33 10^6/ul (4.0-5.4); Red Cell Distribution Width 13 % (10.5-15); White Blood Count 20.9 10^3/ul (3.5-10.8)
[2017-07-10 07:01] LABS: ABS Basophils 0 10^3/ul (0-0.2); ABS Eosinophils 0 10^3/ul (0-0.6); ABS Lymphocytes 0.9 10^3/ul (1.0-4.8); ABS Monocytes 1.4 10^3/ul (0-0.8); ABS Neutrophils 18.6 10^3/ul (1.5-7.7); ABS Nucleated RBC 0 10^3/ul; Eosinophil % 0 % (0-6); Lymphocyte % 4.4 % (25-47); Nucleated Red Blood Cells % 0
--- NOTE | 2017-07-10 08:06 | RAD ---
HISTORY: Evaluate for infiltrate, diabetic ketoacidosis COMPARISONS: May 07, 2017 VIEWS: 1: frontal portable view of the chest at 7:35 AM FINDINGS: LINES AND TUBES: None. CARDIOMEDIASTINAL SILHOUETTE: The cardiomediastinal silhouette is normal for portable technique. PLEURA: The costophrenic angles are sharp. No pleural abnormalities are noted. LUNG PARENCHYMA: The lungs are clear. ABDOMEN: The upper abdomen is clear. There is no subphrenic gas. BONES AND SOFT TISSUES: No bone or soft tissue abnormalities are noted. IMPRESSION: NO ACTIVE CARDIOPULMONARY DISEASE.
--- NOTE | 2017-07-10 08:28 | PN ---
Subjective Date of Service: 07/10/17 Interval History: Pt is feeling better today but is very sleepy. He denies any nausea currently. He vomited once overnight. Nursing notes the patient would not even stay awake to carry on a conversation this AM. Objective Active Medications: Acetaminophen (Tylenol Tab*) 650 mg PO Q4H PRN PRN Reason: PAIN Dextrose (D50w Syringe 50 Ml*) 25 gm IV PUSH ONCE PRN PRN Reason: FS < 60 Last Admin: 07/09/17 17:15 Dose: 25 gm Lactated Ringer's (Lactated Ringers 1000 Ml Bag*) 1,000 mls @ 150 mls/hr IV PER RATE [facility] Last Admin: 07/10/17 06:49 Dose: 150 mls/hr Dextrose/Sodium Chloride (D5ns 0.9% 1000 Ml Bag*) 1,000 mls @ 150 mls/hr IV PER RATE [facility] Last Admin: 07/10/17 05:23 Dose: 150 mls/hr Insulin Human Regular (Insulin Regular Ivpb) 100 units in 100 mls @ 1 mls/hr IVPB Q24H [facility] PRN Reason: 1 UNIT/HR Last Admin: 07/10/17 07:13 Dose: 1 mls/hr Ondansetron HCl (Zofran Inj*) 4 mg IV Q6H PRN PRN Reason: NAUSEA Last Admin: 07/09/17 18:55 Dose: 4 mg Pantoprazole Sodium (Protonix Iv*) 40 mg IV DAILY [facility] Last Admin: 07/10/17 00:25 Dose: 40 mg Prochlorperazine Edisylate (Compazine Inj*) 10 mg IV Q6H PRN PRN Reason: NAUSEA/VOMITING Last Admin: 07/09/17 16:29 Dose: 10 mg Vital Signs - 8 hr 07/10/17 07/10/17 07/10/17 00:30 01:00 01:30 Temperature Pulse Rate 103 107 105 Respiratory 17 16 17 Rate Blood Pressure 162/75 164/71 158/78 (mmHg) O2 Sat by Pulse 99 99 99 Oximetry 07/10/17 07/10/17 07/10/17 02:00 02:30 03:00 Temperature Pulse Rate 103 109 102 Respiratory 17 19 17 Rate Blood Pressure 161/84 160/76 149/77 (mmHg) O2 Sat by Pulse 100 99 100 Oximetry 07/10/17 07/10/17 07/10/17 03:02 03:30 04:00 Temperature 99.1 F Pulse Rate 97 97 Respiratory 15 15 Rate Blood Pressure 148/80 157/83 (mmHg) O2 Sat by Pulse 99 100 Oximetry 07/10/17 07/10/17 07/10/17 04:30 05:00 05:30 Temperature Pulse Rate 99 91 90 Respiratory 15 16 17 Rate Blood Pressure 160/80 155/77 159/76 (mmHg) O2 Sat by Pulse 100 100 99 Oximetry 07/10/17 07/10/17 07/10/17 06:00 06:30 07:00 Temperature Pulse Rate 105 95 88 Respiratory 18 17 15 Rate Blood Pressure 157/79 155/76 151/75 (mmHg) O2 Sat by Pulse 99 100 99 Oximetry 07/10/17 08:00 Temperature 98.5 F Pulse Rate Respiratory Rate Blood Pressure (mmHg) O2 Sat by Pulse Oximetry Oxygen Devices in Use Now: None Appearance: Young male lying in bed, awakens to voice, NAD Eyes: No Scleral Icterus Ears/Nose/Mouth/Throat: Mucous Membranes Moist Respiratory: Symmetrical Chest Expansion and Respiratory Effort, Clear to Auscultation - anteriorly Cardiovascular: NL Sounds; No Murmurs; No JVD, RRR, No Edema Abdominal: NL Sounds; No Tenderness; No Distention Extremities: No Clubbing, Cyanosis Skin: No Rash or Ulcers, No Nodules or Sclerosis Neurological: - - lethargic (falls asleep readily while I am talking to him) Result Diagrams: 07/10/17 06:20 07/10/17 06:20 Microbiology and Other Data: Microbiology 07/09/17 13:40 Nasal Screen MRSA (PCR)([facility]) - Final Nasal Mrsa Not Detected Assess/Plan/Problems-Billing Mr Leiva is a 31 yo M who has a h/o type I DM who presented to the ER with c/o severe abdominal pain, nausea and vomiting since 07/06/17 and was found to be in DKA. - Patient Problems (1) DKA (diabetic ketoacidoses) Current Visit: Yes Status: Acute Priority: High Onset Date: 10/19/13 Code(s): E13.10 - OTH DIABETES MELLITUS WITH KETOACIDOSIS WITHOUT COMA SNOMED Code(s): 584105338 Comment: The patient presented to the ER in DKA with a non-reportable AG and a serum CO2<7. Despite being on the insulin drip overnight he continues to show no signs of improvement in his CO2 and AG. Will recheck LA this AM. Also will start work up for infection as potential source of persistent acidosis. Check ABG. Will ask Dr. Hobson for consult as he has not improved as I would have expected. Will continue insulin drip with close monitoring of his sugars. He remains on LR at 150ml/hr and D5NS at 150ml/hr. (2) Nausea & vomiting Current Visit: Yes Status: Acute Code(s): R11.2 - NAUSEA WITH VOMITING, UNSPECIFIED SNOMED Code(s): 21459971 Comment: Resolved. Will continue prn antiemetics. No evidence of cholecystitis on RUQ ultrasound. I suspect the N/V is secondary to his DKA. (3) DVT prophylaxis Current Visit: Yes Status: Acute Code(s): GZJ1535 - SNOMED Code(s): 422960838 Comment: ambulation (4) Full code status Current Visit: Yes Status: Acute Code(s): Z78.9 - OTHER SPECIFIED HEALTH STATUS SNOMED Code(s): 292972348
[2017-07-10 11:59] LABS: EGFR Non-African American 98.4 (>60)
--- NOTE | 2017-07-10 13:42 | PN ---
Date of Service: 07/10/17 Critical Care Services: Has been slow to respond, but most recent HCO3 is up to 10 mEq/L, and the anion gap is down to 15 mEq/L. Last glucose was 202 mg/dL on 2.5 units of regular insulin/hr. Patient is awake, oriented, and breathing comfortably. Vital Signs: Temp Pulse Resp BP SpO2 FiO2 98.5 F 87 18 149/79 99 Physical Exam: Gen:Alert, oriented. Lungs: Clear Extremities: Warm. No cyanosis or edema. Fluid Balance (Past 24 Hours): 07/10/17 06:59 Intake Total 7941.1 Output Total 7030 Balance +911.1 Weight 191 lbs Intake: IV Fluids 7641 D5NS 1869 LR 2772 NS 3000 IVPB 262 D5NS 262 Medicated IV 38.1 INSULIN 38.1 Oral 0 Output: Urine 6980 Emesis 50 Labs: 07/10/17 07/10/17 07/10/17 02:19 02:21 03:13 Sodium 126 L Potassium 4.9 Chloride 100 L Carbon Dioxide < 7 L* Anion Gap Not Reportable BUN 24 Creatinine 1.10 BUN/Creatinine Ratio 21.8 H Glucose 323 H POC Glucose (mg/dL) 292 H 292 H Lactic Acid Calcium 8.1 L 07/10/17 07/10/17 05:17 06:20 WBC 20.9 H RBC 5.33 Hgb 15.9 Hct 47 Plt Count 305 POC Glucose (mg/dL) 280 H 07/10/17 07/10/17 07/10/17 06:20 06:28 07:08 Sodium 129 L Potassium 4.3 Chloride 104 Carbon Dioxide < 7 L Anion Gap Not Reportable BUN Creatinine Est GFR ( Amer) Est GFR (Non-Af Amer) BUN/Creatinine Ratio Glucose POC Glucose (mg/dL) 258 H 264 H Lactic Acid Calcium Procalcitonin 07/10/17 07/10/17 07/10/17 07:45 07:45 08:00 WBC RBC Hgb Hct MCV MCH MCHC RDW Plt Count MPV Neut % (Auto) Lymph % (Auto) [place] % (Auto) Eos % (Auto) Baso % (Auto) Absolute Neuts (auto) Absolute Lymphs (auto) Absolute Monos (auto) Absolute Eos (auto) Absolute Basos (auto) Absolute Nucleated RBC Nucleated RBC % ABG pH ABG pCO2 ABG pO2 ABG HCO3 ABG O2 Saturation ABG Base Excess Sodium Potassium Chloride Carbon Dioxide Anion Gap BUN Creatinine Est GFR ( Amer) Est GFR (Non-Af Amer) BUN/Creatinine Ratio Glucose POC Glucose (mg/dL) 245 H Lactic Acid 0.5 Calcium Procalcitonin 0.3 07/10/17 07/10/17 07/10/17 08:15 09:15 10:00 ABG pH 7.22 ABG pCO2 22 ABG pO2 109 Sodium 130 L Potassium 3.9 Chloride 105 Carbon Dioxide 10 Anion Gap 15 BUN 16 Creatinine 0.90 Glucose 248 H POC Glucose (mg/dL) 236 H Lactic Acid Calcium 8.4 L Studies: Urine culture negative. Nutrition: NPO Impression: Ketosis is resolving (by anion gap). Acidosis now is primarily hyperchloremic ( and due to saline infusion). Plan: 1. Stop insulin infusion and cut back on IV fluid. 2. Start feeding 3. Start sliding scale insulin coverage (will also add lantus coverage). 4. Continue to monitor acidosis and anion gap until they both resolve. Critical care time: 35 minutes
[2017-07-10] MEDS ORDERED: Insulin LISPRO* 1 UNITS UNIT SUBCUT SCH (16:30)
[2017-07-10 17:33] LABS: EGFR Non-African American 112.8 (>60)
[2017-07-10] MEDS: [UNRECOGNIZED DRUG - OTHER] IVPB SCH (18:29)
[2017-07-10] MEDS ORDERED: Insulin GLARGINE(*) 1 UNITS UNIT SUBCUT SCH (21:00)
[2017-07-10] MEDS: D5LR 1000 ML BAG* 1,000 ML IV SCH (21:29)
[2017-07-11 00:52] LABS: EGFR Non-African American 127.3 (>60)
[2017-07-11] MEDS: [UNRECOGNIZED DRUG - OTHER] IVPB SCH (01:19)
[2017-07-11] MEDS: Ondansetron INJ* 2 MG/ML VIAL IV PRN ×2 (03:18→20:08)
[2017-07-11] MEDS: D5LR 1000 ML BAG* 1,000 ML IV SCH ×3 (05:15→22:40)
[2017-07-11 06:18] LABS: Hematocrit 40 % (42-52); Hemoglobin 13.5 g/dl (14.0-18.0); Mean Corpuscular HGB Conc 34 g/dl (31-36); Mean Corpuscular Hemoglobin 30 pg (27-31); Mean Corpuscular Volume 88 fL (80-94); Mean Platelet Volume 7.9 um3 (7.4-10.4); Platelet Count 220 10^3/ul (150-450); Red Blood Count 4.56 10^6/ul (4.0-5.4); Red Cell Distribution Width 14 % (10.5-15)
[2017-07-11 06:30] LABS: EGFR Non-African American 119.6 (>60)
[2017-07-11] MEDS ORDERED: Insulin GLARGINE(*) 1 UNITS UNIT SUBCUT SCH (08:00)
[2017-07-11] MEDS: Potassium Chlor TAB* 20 MEQ TAB.ER PO SCH ×2 (08:20→12:31)
[2017-07-11] MEDS ORDERED: Famotidine TAB* 20 MG PO SCH (09:00)
--- NOTE | 2017-07-11 09:45 | PN ---
Date of Service: 07/11/17 Critical Care Services: On insulin drip overnight for persistent acidosis but this AM HCO3 up to 17 mEq/ L and anion gap down to 12 mEq/L. Patient is awake and hungry. Vital Signs: Temp Pulse Resp BP SpO2 FiO2 99 F 65 14 157/83 99 Physical Exam: Gen:Sitting up in a chair. Alert and oriented. Abdomen:Not distended. Extremities:Warm. No cyanosis or edema. Fluid Balance (Past 24 Hours): 07/11/17 06:59 Intake Total 3759.3 Output Total 5400 Balance -1640.7 Weight 191 lb Intake: IV Fluids 3701 D5NS 842 D5W LR 918 LR 1941 NS IVPB D5NS Medicated IV 53.3 INSULIN 53.3 Oral 5 Output: Urine 5400 Emesis Labs: 07/11/17 07/11/17 07/11/17 03:07 04:07 05:18 WBC RBC Hgb Hct MCV MCH MCHC RDW Plt Count MPV Sodium Potassium Chloride Carbon Dioxide Anion Gap BUN Creatinine Est GFR ( Amer) Est GFR (Non-Af Amer) BUN/Creatinine Ratio Glucose POC Glucose (mg/dL) 179 H 190 H 173 H Calcium 07/11/17 07/11/17 07/11/17 05:57 05:57 06:00 WBC 12.0 H RBC 4.56 Hgb 13.5 L Hct 40 L MCV 88 MCH 30 MCHC 34 RDW 14 Plt Count 220 MPV 7.9 Sodium 129 L Potassium 3.2 L Chloride 100 L Carbon Dioxide 17 Anion Gap 12 BUN 12 Creatinine 0.76 Glucose 177 H POC Glucose (mg/dL) 169 H Calcium 8.4 L 07/11/17 07/11/17 06:56 09:02 WBC RBC Hgb Hct MCV MCH MCHC RDW Plt Count MPV Sodium Potassium Chloride Carbon Dioxide Anion Gap BUN Creatinine Est GFR ( Amer) Est GFR (Non-Af Amer) BUN/Creatinine Ratio Glucose POC Glucose (mg/dL) 168 H 162 H Calcium Studies: None Nutrition: Oral diet to be started. Impression: Resiolving DKA Plan: 1. D/C insulin infusion and start sliding scale insulin, plus long-acting ( lantus -10 mg) coverage. 2. Start oral diet and remove dextrose from IVs. 3. Cut back on IV infusions.
[2017-07-11] MEDS ORDERED: Insulin LISPRO* 1 UNITS UNIT SUBCUT SCH (11:30)
[2017-07-11 13:56] LABS: EGFR Non-African American 151.3 (>60)
--- NOTE | 2017-07-11 14:25 | PN ---
Progress Note - Progress Note Date of Service: 07/11/17 Note: Restarted insulin infusion this afternoon because HCO3 dropped to 13 and anion gap increased to 16 after d/cing the infusion earlier today.
[2017-07-11] MEDS ORDERED: Insulin REGULAR IVPB 100 UNITS/100 ML UNIT IVPB SCH (15:00)
[2017-07-11] MEDS ORDERED: LORazepam TAB(*) 1 MG PO PRN (15:43)
[2017-07-11] MEDS: Omeprazole CAP* 20 MG PO SCH (20:08)
[2017-07-11] MEDS: PROCHLORPERAZINE INJ 5 MG/ML 2 ML VIAL IV PRN (21:59)
[2017-07-12 04:41] LABS: EGFR Non-African American 170.2 (>60)
[2017-07-12] MEDS ORDERED: Potassium Chloride LIQUID* 20 MEQ PACKET ONE (05:08)
[2017-07-12] MEDS: Potassium Chlor TAB* 20 MEQ TAB.ER PO SCH ×2 (05:42→08:00)
[2017-07-12] MEDS: Omeprazole CAP* 20 MG PO SCH ×2 (07:59→20:19)
[2017-07-12] MEDS ORDERED: Insulin GLARGINE(*) 1 UNITS UNIT SUBCUT SCH (09:00)
[2017-07-12] MEDS ORDERED: Nitroglycerin TAB 0.4 MG* 0.4 MG TAB ONE (09:26)
[2017-07-12] MEDS ORDERED: Nitroglycerin TAB 0.4 MG* 0.4 MG TAB SL ONE (09:32)
[2017-07-12 12:37] LABS: EGFR Non-African American 173.7 (>60)
[2017-07-12] MEDS: Insulin LISPRO* 1 UNITS UNIT SUBCUT SCH ×3 (12:39→20:19)
--- NOTE | 2017-07-12 14:15 | PN ---
Date of Service: 07/12/17 Critical Care Services: Has done well today. Off insulin drip, and f/u HCO3 is 21 mEq/L and anion gap in 13 mEq/L (both acdeptable values). Is up in bed and visiting with friends. Did complain of midepigastric pain after beginning breakfast - given nitroglycerin for esophageal spasm, with immediate resolution of pain. Vital Signs: Temp Pulse Resp BP SpO2 FiO2 99.1 F 63 13 140/80 98 Physical Exam: Gen:Alert, oriented and comfortable Lungs: clear Cardiac: No murmurs Abdomen: Not ditended. Nontender. BS present. Fluid Balance (Past 24 Hours): 07/12/17 06:59 Intake Total 3010 Output Total 2300 Balance 710 Weight 194 lb Intake: IV Fluids 2524 D5NS D5W LR 2077 LR 447 NS IVPB D5NS LR Medicated IV 46 INSULIN 46 Oral 440 Output: Urine 2300 Emesis Labs: Laboratory Results - last 24 hr 07/11/17 07/11/17 07/11/17 15:03 16:08 18:13 Sodium Potassium Chloride Carbon Dioxide Anion Gap BUN Creatinine Est GFR ( Amer) Est GFR (Non-Af Amer) BUN/Creatinine Ratio Glucose POC Glucose (mg/dL) 246 H 194 H 225 H Calcium 07/11/17 07/11/17 07/11/17 20:01 22:07 23:57 Sodium Potassium Chloride Carbon Dioxide Anion Gap BUN Creatinine Est GFR ( Amer) Est GFR (Non-Af Amer) BUN/Creatinine Ratio Glucose POC Glucose (mg/dL) 210 H 169 H 160 H Calcium 07/12/17 07/12/17 07/12/17 02:15 04:02 04:15 Sodium 132 L Potassium 2.7 L* Chloride 100 L Carbon Dioxide 24 Anion Gap 8 BUN 10 Creatinine 0.56 L Est GFR ( Amer) 218.8 Est GFR (Non-Af Amer) 170.2 BUN/Creatinine Ratio 17.9 Glucose 150 H POC Glucose (mg/dL) 153 H 107 H Calcium 8.3 L 07/12/17 07/12/17 07/12/17 04:15 06:38 08:02 Sodium Potassium Chloride Carbon Dioxide Anion Gap BUN Creatinine Est GFR ( Amer) Est GFR (Non-Af Amer) BUN/Creatinine Ratio Glucose POC Glucose (mg/dL) 150 203 200 07/12/17 07/12/17 11:52 12:00 Sodium 132 Potassium 3.4 Chloride 98 L Carbon Dioxide 21 Anion Gap 13 BUN 12 Creatinine 0.55 Glucose 283 POC Glucose (mg/dL) 292 H Studies: None Nutrition: Oral diet (consistent carbs) Impression: 1. Resolution of ketosis (finally!) 2. Probable esophageal spasm Plan: 1. Started lantus coverage (10 units daily, which is 1/2 of his outpatient dose ) and sliding scale insulin coverage. 2. Sublingual nitroglycerin as needed for esophageal spasm. 3. Will transfer out of ICU.
[2017-07-12 16:20] LABS: EGFR Non-African American 181.3 (>60)
[2017-07-12] MEDS: Nitroglycerin TAB 0.4 MG* 0.4 MG TAB SL PRN (17:20)
[2017-07-13 06:58] LABS: EGFR Non-African American 143.3 (>60)
[2017-07-13] MEDS ORDERED: Dextrose 50% Syringe 50 ML* 25 GM/50 ML SYRINGE IV PUSH PRN (08:34)
[2017-07-13] MEDS ORDERED: Insulin LISPRO* 1 UNITS UNIT SUBCUT ONE ×5 (08:36→19:29)
[2017-07-13] MEDS ORDERED: Insulin GLARGINE(*) 1 UNITS UNIT SUBCUT SCH (09:00)
[2017-07-13] MEDS ORDERED: Potassium Phosphate IV* 10 MMOLE in NS 0.9% 250 ML* 250 ML IVPB ONE (09:00)
[2017-07-13] MEDS: Omeprazole CAP* 20 MG PO SCH ×2 (09:10→20:24)
[2017-07-13] MEDS: Insulin LISPRO* 1 UNITS UNIT SUBCUT SCH ×4 (09:10→20:25)
--- NOTE | 2017-07-13 09:13 | PN ---
Subjective Date of Service: 07/13/17 Interval History: Abdominal pain resolved. Ate small dinner last PM but no breakfast this AM Objective Active Medications: Acetaminophen (Tylenol Tab*) 650 mg PO Q4H PRN PRN Reason: PAIN Dextrose (D50w Syringe 50 Ml*) 25 gm IV PUSH ONCE PRN PRN Reason: FS < 60 Last Admin: 07/09/17 17:15 Dose: 25 gm Dextrose (D50w Syringe 50 Ml*) 12.5 gm IV PUSH .FOR FS < 60 - SS PRN PRN Reason: FS < 60 Potassium Phosphate 10 mmole/ (Sodium Chloride) 253.3333 mls @ 42 mls/hr IVPB ONCE ONE Stop: 07/13/17 15:01 Insulin Glargine (Lantus(*)) 25 units SUBCUT Q24HR [facility] Last Admin: 07/13/17 08:58 Dose: 25 units Insulin Human Lispro (Humalog*) 0 units SUBCUT ACHS [facility] PRN Reason: Protocol Nitroglycerin (Nitroglycerin Tab 0.4 Mg*) 0.4 mg SL Q4H PRN PRN Reason: ESOPHAGEAL STRICTURE PAIN Last Admin: 07/12/17 17:20 Dose: 0.4 mg Omeprazole (Prilosec Cap*) 20 mg PO BID [facility] Last Admin: 07/12/17 20:19 Dose: 20 mg Ondansetron HCl (Zofran Inj*) 4 mg IV Q6H PRN PRN Reason: NAUSEA Last Admin: 07/11/17 20:08 Dose: 4 mg Prochlorperazine Edisylate (Compazine Inj*) 10 mg IV Q6H PRN PRN Reason: NAUSEA/VOMITING Last Admin: 07/11/17 21:59 Dose: 10 mg Vital Signs - 8 hr 07/13/17 07/13/17 03:38 03:47 Pulse Rate 64 Respiratory 16 Rate Blood Pressure 142/56 (mmHg) O2 Sat by Pulse 99 Oximetry Oxygen Devices in Use Now: None Appearance: sitting up in bed, NAD Eyes: No Scleral Icterus, PERRLA Ears/Nose/Mouth/Throat: Clear Oropharnyx, Mucous Membranes Moist Neck: NL Appearance and Movements; NL JVP, Trachea Midline Respiratory: Symmetrical Chest Expansion and Respiratory Effort, Clear to Auscultation Cardiovascular: NL Sounds; No Murmurs; No JVD, RRR Abdominal: NL Sounds; No Tenderness; No Distention, No Hepatosplenomegaly Lymphatic: No Cervical Adenopathy Extremities: No Edema Skin: No Rash or Ulcers Neurological: Alert and Oriented x 3 Result Diagrams: 07/11/17 05:57 07/13/17 06:22 Microbiology and Other Data: Microbiology 07/09/17 13:40 Nasal Screen MRSA (PCR)([facility]) - Final Nasal Mrsa Not Detected Assess/Plan/Problems-Billing Mr Leiva is a 31 yo M who has a h/o type I DM (dx 4 years [employer]) who presented to the ER with c/o severe abdominal pain, nausea and vomiting since 07/06/17 and was found to be in DKA requiring ICU/Insulin gtt - Patient Problems (1) DKA (diabetic ketoacidoses) Comment: Started on lantus 10 U (home dose 40) and medium dose SS This AM 07/13 AG increased to 20 and HCO3 down to 16 Increase lantus to 25, lispro 15 unit now, FSG Q2 and NPO If AG not improving may need ICU and insulin gtt Needs education (2) Nausea & vomiting Comment: Resolved. Will continue prn antiemetics. No evidence of cholecystitis on RUQ ultrasound. N/V was secondary to his DKA. (3) DVT prophylaxis Comment: ambulation
[2017-07-13 11:32] LABS: EGFR Non-African American 129.4 (>60)
[2017-07-13 18:11] LABS: EGFR Non-African American 131.5 (>60)
[2017-07-14 06:55] LABS: EGFR Non-African American 125.3 (>60)
[2017-07-14] MEDS ORDERED: Potassium Chlor TAB* 20 MEQ TAB.ER PO ONE (08:12)
[2017-07-14] MEDS ORDERED: Dextrose 50% Syringe 50 ML* 25 GM/50 ML SYRINGE IV PUSH PRN (08:13)
[2017-07-14] MEDS: Insulin LISPRO* 1 UNITS UNIT SUBCUT SCH ×9 (08:51→21:13)
[2017-07-14] MEDS: Insulin GLARGINE(*) 1 UNITS UNIT SUBCUT SCH (08:52)
[2017-07-14] MEDS: Omeprazole CAP* 20 MG PO SCH ×2 (08:53→21:13)
[2017-07-14] MEDS ORDERED: Insulin LISPRO* 1 UNITS UNIT SUBCUT ONE (11:55)
[2017-07-14] MEDS: Nitroglycerin TAB 0.4 MG* 0.4 MG TAB SL PRN ×2 (13:00→17:40)
[2017-07-14 14:59] LABS: EGFR Non-African American 125.3 (>60)
--- NOTE | 2017-07-14 15:13 | PN ---
Subjective Date of Service: 07/14/17 Interval History: Started on diet this AM and was much happier Not familiar with carbohydrate counting Previously was administering sliding scale insulin to self at home before current regimen of lispro one time daily Acknowledges understanding that he will have to check FSG glucose multiple times daily and adjust insulin to better control DM1 Anxious to leave hospital and also about cost of hospital stay (self pay) Objective Active Medications: Acetaminophen (Tylenol Tab*) 650 mg PO Q4H PRN PRN Reason: PAIN Dextrose (D50w Syringe 50 Ml*) 12.5 gm IV PUSH .FOR FS < 60 - SS PRN PRN Reason: FS < 60 Potassium Phosphate 10 mmole/ (Sodium Chloride) 253.3333 mls @ 42 mls/hr IVPB ONCE ONE Stop: 07/14/17 21:05 Insulin Glargine (Lantus(*)) 35 units SUBCUT Q24H [facility] Last Admin: 07/14/17 08:52 Dose: 35 units Insulin Human Lispro (Humalog*) 0 units SUBCUT ACHS [facility] PRN Reason: Protocol Last Admin: 07/14/17 13:40 Dose: 3 units Insulin Human Lispro (Humalog*) 0 units SUBCUT ACHS [facility] PRN Reason: Protocol Last Admin: 07/14/17 13:41 Dose: 1 units Nitroglycerin (Nitroglycerin Tab 0.4 Mg*) 0.4 mg SL Q4H PRN PRN Reason: ESOPHAGEAL STRICTURE PAIN Last Admin: 07/14/17 13:00 Dose: 0.4 mg Omeprazole (Prilosec Cap*) 20 mg PO BID [facility] Last Admin: 07/14/17 08:53 Dose: 20 mg Ondansetron HCl (Zofran Inj*) 4 mg IV Q6H PRN PRN Reason: NAUSEA Last Admin: 07/11/17 20:08 Dose: 4 mg Prochlorperazine Edisylate (Compazine Inj*) 10 mg IV Q6H PRN PRN Reason: NAUSEA/VOMITING Last Admin: 07/11/17 21:59 Dose: 10 mg Vital Signs - 8 hr 07/14/17 07/14/17 07/14/17 07:27 08:00 13:02 Temperature 98.3 F Pulse Rate 71 Respiratory 16 12 Rate Blood Pressure 147/68 150/77 (mmHg) O2 Sat by Pulse 100 Oximetry Oxygen Devices in Use Now: None Appearance: NAD Eyes: No Scleral Icterus, PERRLA Ears/Nose/Mouth/Throat: NL Teeth, Lips, Gums, Clear Oropharnyx, Mucous Membranes Moist Neck: NL Appearance and Movements; NL JVP, Trachea Midline Respiratory: Symmetrical Chest Expansion and Respiratory Effort, Clear to Auscultation Cardiovascular: NL Sounds; No Murmurs; No JVD, RRR Abdominal: NL Sounds; No Tenderness; No Distention Lymphatic: No Cervical Adenopathy Skin: No Rash or Ulcers Neurological: Alert and Oriented x 3 Result Diagrams: 07/11/17 05:57 07/14/17 14:33 Microbiology and Other Data: Microbiology 07/09/17 13:40 Nasal Screen MRSA (PCR)([facility]) - Final Nasal Mrsa Not Detected Assess/Plan/Problems-Billing Mr Leiva is a 31 yo M who has a h/o type I DM (dx 4 years [employer]) who presented to the ER with c/o severe abdominal pain, nausea and vomiting since 07/06/17 and was found to be in DKA requiring ICU/Insulin gtt - Patient Problems (1) DKA (diabetic ketoacidoses) Comment: admitted April for DKA in setting of inability to pay for medications Started on lantus 10 U (home dose 40) and medium dose SS Lantus increased to 35U 07/14, added carb counting lispro and c/w high dose lispro SS Advanced diet, discussed carb counting Type I dm and would benefit from endo (pump) and nutrition or [facility] for additional education On discharge can consider SS lispro or fixed dose TID dosing. I discussed at length need to check FSG 3-4x/daily. Finances are a concern for him and have resulted in previous hospital stays when unable to afford insulin (2) Nausea & vomiting Comment: Resolved. Will continue prn antiemetics. No evidence of cholecystitis on RUQ ultrasound. N/V was secondary to his DKA. (3) Esophageal spasm Comment: episode of spasm 07/14 resolved with SL nitro (4) DVT prophylaxis Comment: ambulation Status and Disposition: Suspect home tomorrow depending on GAP and AM FSG. Repeat consult placed to address medicaid and/or assistance for medication and equipment/testing supplies /endo consults/[facility]
[2017-07-14] MEDS ORDERED: Potassium Phosphate IV* 10 MMOLE in NS 0.9% 250 ML* 250 ML IVPB ONE (15:30)
[2017-07-15 06:43] LABS: ABS Basophils 0 10^3/ul (0-0.2); ABS Eosinophils 0.1 10^3/ul (0-0.6); ABS Lymphocytes 2.9 10^3/ul (1.0-4.8); ABS Monocytes 0.9 10^3/ul (0-0.8); ABS Neutrophils 5.3 10^3/ul (1.5-7.7); ABS Nucleated RBC 0 10^3/ul; Eosinophil % 1.3 % (0-6); Hematocrit 41 % (42-52); Lymphocyte % 31.5 % (25-47); Mean Corpuscular HGB Conc 34 g/dl (31-36); Mean Corpuscular Hemoglobin 30 pg (27-31); Mean Corpuscular Volume 87 fL (80-94); Mean Platelet Volume 7.8 um3 (7.4-10.4); Nucleated Red Blood Cells % 0.1; Platelet Count 297 10^3/ul (150-450); Red Blood Count 4.73 10^6/ul (4.0-5.4); Red Cell Distribution Width 13 % (10.5-15); White Blood Count 9.3 10^3/ul (3.5-10.8)
[2017-07-15 07:02] LABS: EGFR Non-African American 129.4 (>60)
[2017-07-15] MEDS ORDERED: Magnesium Sulfate 2 GM IV* 2 GM/50 ML BAG IVPB ONE (07:21)
[2017-07-15] MEDS: Omeprazole CAP* 20 MG PO SCH (08:36)
[2017-07-15] MEDS: Potassium Chlor TAB* 20 MEQ TAB.ER PO SCH ×2 (08:36→13:00)
[2017-07-15 08:50] VITALS: BP 144/61
[2017-07-15] MEDS ORDERED: Benzocaine/Menthol LOZ* 1 LOZENGE MT PRN (08:55)
[2017-07-15] MEDS: Insulin GLARGINE(*) 1 UNITS UNIT SUBCUT SCH (09:47)
[2017-07-15] MEDS: Insulin LISPRO* 1 UNITS UNIT SUBCUT SCH ×4 (09:48→13:01)
--- NOTE | 2017-07-16 17:15 | DS ---
CC: Dr. Kanu Saab* DISCHARGE SUMMARY: DATE OF ADMISSION: 07/09/17 DATE OF DISCHARGE: 07/15/17 PRIMARY CARE PHYSICIAN: Dr. Kanu Saab. DISCHARGE DIAGNOSES: 1. Diabetic ketoacidosis. 2. Leukocytosis. 3. Hyponatremia. 4. Acute kidney injury. 5. Hypomagnesemia. SECONDARY DIAGNOSIS: Type 1 diabetes. MEDICATION LIST: 1. Vitamin B one tablet p.o. daily. Medication changed: 1. Lantus 35 units subcutaneously daily. 2. Insulin lispro sliding scale as follow: Fingersticks 131 to 150 - 2 units. 151 to 200 - 3 units. 201 to 250 - 6 units. 251 to 300 - 9 units. 301 to 350 - 12 units. 351 to 400 - 16 units. Greater than 400, call MD. 1 unit for every 12 g of carbs before meals. New medications: 1. Omeprazole 20 mg p.o. b.i.d. 2. Benzocaine/menthol lozenge orally q.4 hours p.r.n. sore throat. HOSPITAL COURSE: Mr. Leiva is a 31-year-old male with a past medical history as stated above that presented to the emergency room with complaint of nausea, vomiting, and abdominal pain, found to be in severe diabetic ketoacidosis. Although the patient stated that he was using his insulin as prescribed, the admitting physician questioned the truthfulness of this. He was admitted to intensive care unit where he received aggressive fluid resuscitation and insulin drip. The patient had lactic acidosis, acute kidney injury, leukocytosis but no source of infection was found and the impression was that this is all related to his DKA. A gallbladder ultrasound showed normal gallbladder with a mildly enlarged liver and a chest x-ray showed no active cardiopulmonary disease. The patient had progressive improvement of his glycemic levels and his electrolytes and renal function improved. Of note is the fact that the patient does not have insurance and this may be compromising his capacity to buy his medications. He was seen in consultation by skilled nursing case manager and clinical social work therapist to assist with applying for insurance. His Medicaid application was initiated but he has to continue the process as outpatient. The clinical social work therapist has told him how to continue the process. Later on during the admission, the patient admitted that he was taking his medications when he could afford it. He stated that it cost him 700 a month to fill his insulin prescriptions and he was not always able to receive the medications when needed. The patient received further diabetes education while in the hospital and his glucose has been well controlled with his regimen of Lantus 35 units at night with lispro sliding scale a.c. and h.s. and covering his carbohydrates before meals. The patient states that he is comfortable checking his glucose and giving himself injections. artificial marble worker has to set him and was able to lower the cost of his Lantus to 183 dollars per prescription and he was encouraged to follow up with a navigator as outpatient to qualify for insurance. The patient had significant vomiting prior to admission and after that he developed sore throat and heartburn probably secondary to emetogenic esophagitis. He has had symptomatic relief with omeprazole and Chloraseptic lozenge. The patient is medically stable to be discharged home today. PHYSICAL EXAMINATION: Vital Signs: Temperature 98.1, heart rate is 64, respiratory rate is 16, oxygen saturation is 100% on room air, blood pressure is 144/61. General: The patient is a pleasant young male, sitting up in bed, in no acute distress. CVS: Normal S1 and S2. Regular rate and rhythm. Chest : Breath sounds bilaterally with no added sounds. Extremities: No edema. Neuro: He is alert, awake, and oriented x3, able to move all 4 extremities. DIET: Consistent carb diet. ACTIVITIES: As tolerated. DISPOSITION: To home. STATUS IN THE HOSPITAL: Inpatient. Please keep in mind this is a summarized version of this patient's complex hospital stay. If you need more information, please feel free to call me at or please obtain the full medical records. TIME SPENT: Approximately 45 minutes was spent to complete this discharge. [id number]/CPS #: [id number] [facility]
== END 2017-07-15 14:50 | disposition home or self-care (01) | DRG 638 ==
LOC: ED 09:31 → ICU 11:48 → MED 07-12 16:06
PROVIDERS: ADMIT Hospitalist; ATTEND Internal Medicine
DX: E10.10 Type 1 diabetes mellitus with ketoacidosis without coma (principal); N17.9 Acute kidney failure, unspecified; E87.1 Hypo-osmolality and hyponatremia; D72.829 Elevated white blood cell count, unspecified; E83.42 Hypomagnesemia; E87.8 Other disorders of electrolyte and fluid balance, not elsewhere classified; K20.8 Other esophagitis; E80.6 Other disorders of bilirubin metabolism; E86.0 Dehydration; F17.210 Nicotine dependence, cigarettes, uncomplicated; Z79.4 Long term (current) use of insulin; Z79.84 Long term (current) use of oral hypoglycemic drugs; Z79.899 Other long term (current) drug therapy; Z88.1 Allergy status to other antibiotic agents; Z82.3 Family history of stroke; Z83.3 Family history of diabetes mellitus
CPT/HCPCS: 36415; 36600; 71045; 76705; 80048; 80051; 80053; 81003; 81015; 82803; 82947; 83036; 83605; 83690; 83735; 84100; 84145; 85025; 85027; 86140; 87040; 87086; 87641; 93005; 99285; A9270-GY; J0780; J1815; J2405; J3475